=== PATIENT | male | born 1995 | race Caucasian/White ===

== ENCOUNTER 2019-10-28 15:34 | Emergency (ER) | payer BC ==
--- NOTE | 2019-10-28 16:14 | CR ---
EXAMINATION: Hand Comp Min 3V Rt SEX: Male AGE: 24 years CLINICAL HISTORY: 24-year-old male complaining of Right 5th MCP PAIN. No comparison films immediately available. History old trauma. INTERPRETATION: Abnormal. 1. Near 90 degree angulation deformity at the site of healed distal diametaphyseal "boxers" fracture (distal fifth metacarpal right hand). 2. Mild overlying soft tissue swelling. 3. No sign of foreign body or inflammatory periostitis. 4. No acute fracture or dislocation right hand or wrist.
[2019-10-28] MEDS ORDERED: Ibuprofen 600 MG Tab PO ONE (16:32)
--- NOTE | 2019-10-28 16:38 | EDM.PDOC ---
ED HPI GENERAL MEDICAL PROBLEM - General Chief Complaint: Upper Extremity Injury/Pain Stated Complaint: KNUCKLE OUT OF PLACE ON HAND Time Seen by Provider: 10/28/19 16:00 Source of Information: Reports: Patient History Limitations: Reports: No Limitations - History of Present Illness INITIAL COMMENTS - FREE TEXT/NARRATIVE: This 24 yo male patient reports to the ED with pain in his right hand. The patient reports he had a boxer's fracture in August. The patient had a splint placed initially, but he removed the splint himself in approximately 6 weeks. The patient reports he hit his hand on a grain dryer today with increased pain in his hand. Onset: Today Duration: Constant Location: Reports: Upper Extremity, Right Quality: Reports: Ache, Throbbing Severity: Moderate Improves with: Reports: None Worsens with: Reports: None Context: Reports: Other - Related Data Allergies Allergy/AdvReac Type Severity Reaction Status Date / Time cherries Allergy Hives Uncoded 10/28/19 15:45 seasonal allergies Allergy watery Uncoded 10/28/19 15:45 eyes, stuffed up Home Meds: Home Meds ARIPiprazole [Aripiprazole] 5 mg PO DAILY 10/28/19 [History] FLUoxetine HCl [Fluoxetine HCl] 20 mg PO DAILY 10/28/19 [History] busPIRone [Buspar] 10 mg PO TID 10/28/19 [History] traZODone HCl [Trazodone HCl] 100 mg PO BEDTIME 10/28/19 [History] Past Medical History HEENT History: Reports: None Cardiovascular History: Reports: None Respiratory History: Reports: None Gastrointestinal History: Reports: None Genitourinary History: Reports: None Musculoskeletal History: Reports: Fracture Other Musculoskeletal History: right hand, 5th finger/knuckle Neurological History: Reports: None Psychiatric History: Reports: Anxiety, Depression, PTSD, Other (See Below) Other Psychiatric History: Insomnia Endocrine/Metabolic History: Reports: None Hematologic History: Reports: None Immunologic History: Reports: None Oncologic (Cancer) History: Reports: None Dermatologic History: Reports: None Social & Family History - Tobacco Use Smoking Status *Q: Current Every Day Smoker Years of Tobacco use: 10 Packs/Tins Daily: 1 Review of Systems - Review of Systems Review Of Systems: Comprehensive ROS is negative, except as noted in HPI. ED EXAM, GENERAL - Physical Exam Exam: See Below Exam Limited By: No Limitations General Appearance: Alert, WD/WN, Moderate Distress Eye Exam: Bilateral Eye: EOMI, Normal Inspection, PERRL Ears: Normal External Exam, Normal Canal, Hearing Grossly Normal, Normal TMs Nose: Normal Inspection, Normal Mucosa, No Blood Throat/Mouth: Normal Inspection, Normal Lips, Normal Teeth, Normal Gums, Normal Oropharynx, Normal Voice, No Airway Compromise Head: Atraumatic, Normocephalic Neck: Normal Inspection, Supple, Non-Tender, Full Range of Motion Respiratory/Chest: No Respiratory Distress, Lungs Clear, Normal Breath Sounds, No Accessory Muscle Use, Chest Non-Tender Cardiovascular: Normal Peripheral Pulses, Regular Rate, Rhythm, No Edema, No Gallop, No JVD, No Murmur, No Rub GI/Abdominal: Normal Bowel Sounds, Soft, Non-Tender, No Organomegaly, No Distention, No Abnormal Bruit, No Mass (Male) Exam: Deferred Rectal (Males) Exam: Deferred Back Exam: Normal Inspection, Full Range of Motion, NT Extremities: Arm Pain (right hand pain) Neurological: Alert, Oriented, CN II-XII Intact, Normal Cognition, Normal Gait, Normal Reflexes, No Motor/Sensory Deficits Psychiatric: Normal Affect, Normal Mood Skin Exam: Warm, Dry, Intact, Normal Color, No Rash Lymphatic: No Adenopathy ED TRAUMA EXTREMITY PROCEDURES - Splinting Right Upper Extremity Pre-Procedure NV Status: Normal Post-Procedure NV Status: Normal Splint Material: Other (KELSEA wrap) Provider Post-Splint Application NV Check: NV Status Normal Course - Vital Signs Last Recorded V/S: Last Vital Signs Temp 37.2 C 10/28/19 15:40 Pulse 69 10/28/19 15:40 Resp 16 10/28/19 15:40 BP 116/64 10/28/19 15:40 Pulse Ox 100 10/28/19 15:40 - Orders/Labs/Meds Meds: Medications Discontinued Medications Generic Name Dose Route Start Last Admin Trade Name Freq PRN Reason Stop Dose Admin Ibuprofen 600 mg 10/28/19 16:32 10/28/19 16:36 Motrin PO 10/28/19 16:33 600 mg ONETIME ONE Administration Departure - Departure Time of Disposition: 16:33 Disposition: Home, Self-Care 01 Condition: Fair Clinical Impression: Right hand pain - Discharge Information *PRESCRIPTION DRUG MONITORING PROGRAM REVIEWED*: Not Applicable *COPY OF PRESCRIPTION DRUG MONITORING REPORT IN PATIENT RAJNI: Not Applicable Instructions: Cast or Splint Care, Adult, [id number] Forms: ED Department Discharge Care Plan Goals: The patient was advised of the examination and x-ray results during the visit. The patient's right hand was splinted in an KELSEA wrap while in the ED. The patient should rest, ice and elevate his arm over the next 24 hours. The patient was encouraged to follow-up with his primary care facility or orthopedic provider for continued evaluation and management. If the patient has any additional symptoms or concerns, the patient should either return to the emergency department or visit his primary care facility. Sepsis Event Note (ED) - Evaluation Sepsis Screening Result: No Definite Risk - Focused Exam Vital Signs: Vital Signs Temp Pulse Resp BP Pulse Ox 10/28/19 15:40 37.2 C 69 16 116/64 100
== END 2019-10-28 16:41 | disposition home or self-care (01) ==
LOC: DL.ED 15:34
DX: M79.641 Pain in right hand (principal); F17.210 Nicotine dependence, cigarettes, uncomplicated; F41.9 Anxiety disorder, unspecified; F32.9 Major depressive disorder, single episode, unspecified; Z91.018 Allergy to other foods; Z79.899 Other long term (current) drug therapy
CPT/HCPCS: 73130; 99283; A9270

== ENCOUNTER 2020-05-14 14:38 | Emergency (ER) | payer BC ==
--- NOTE | 2020-05-14 14:57 | EDM.PDOCBH ---
ED HPI GENERAL MEDICAL PROBLEM - General Chief Complaint: Drug or Alcohol Abuse Stated Complaint: AMBULANCE Time Seen by Provider: 05/14/20 14:57 Source of Information: Reports: Patient, RN, RN Notes Reviewed History Limitations: Reports: No Limitations - History of Present Illness INITIAL COMMENTS - FREE TEXT/NARRATIVE: 25 y/o m c/o HAJI, nausea and fatigue since this morning. Pt wants detox from alcohol addiction at [facility]. Hx of depression, drug and alcohol abuse. Last drink was before midnight last night. Last used meth in the summer. Uses marijuana recreationally. Denies fever, cough, chills, sob, cp, abd pn. Has not been taking his prescribed medications for several weeks. Duration: Hour(s): Location: Reports: Head, Generalized Quality: Reports: Dull Severity: Mild Improves with: Reports: None Worsens with: Reports: None Associated Symptoms: Reports: Nausea/Vomiting - Related Data Allergies Allergy/AdvReac Type Severity Reaction Status Date / Time cherries Allergy Hives Uncoded 05/14/20 14:50 seasonal allergies Allergy watery Uncoded 05/14/20 14:50 eyes, stuffed up Home Meds: Home Meds ARIPiprazole [Aripiprazole] 5 mg PO DAILY 10/28/19 [History] FLUoxetine HCl [Fluoxetine HCl] 20 mg PO DAILY 10/28/19 [History] busPIRone [Buspar] 10 mg PO TID 10/28/19 [History] traZODone HCl [Trazodone HCl] 100 mg PO BEDTIME 10/28/19 [History] Past Medical History HEENT History: Reports: None Cardiovascular History: Reports: None Respiratory History: Reports: None Gastrointestinal History: Reports: None Genitourinary History: Reports: None Musculoskeletal History: Reports: Fracture Other Musculoskeletal History: right hand, 5th finger/knuckle Neurological History: Reports: None Psychiatric History: Reports: Anxiety, Depression, PTSD, Other (See Below) Other Psychiatric History: Insomnia Endocrine/Metabolic History: Reports: None Hematologic History: Reports: None Immunologic History: Reports: None Oncologic (Cancer) History: Reports: None Dermatologic History: Reports: None Social & Family History - Family History Family Medical History: No Pertinent Family History - Alcohol Use Alcohol Use History: Yes Alcohol Use Frequency: Daily - Recreational Drug Use Recreational Drug Use: Yes Drug Use in Last 12 Months: Yes Recreational Drug Type: Reports: Marijuana/Hashish, Methamphetamine, Xanax ED ROS GENERAL - Review of Systems Review Of Systems: Comprehensive ROS is negative, except as noted in HPI. ED EXAM, BEHAVIORAL HEALTH - Physical Exam Exam: See Below Exam Limited By: No Limitations General Appearance: Alert, No Apparent Distress Ears: Normal External Exam Nose: Normal Inspection Throat/Mouth: Normal Inspection Head: Atraumatic, Normocephalic Neck: Normal Inspection, Supple, Non-Tender Respiratory/Chest: No Respiratory Distress, Lungs Clear, Normal Breath Sounds, No Accessory Muscle Use, Chest Non-Tender Cardiovascular: Normal Peripheral Pulses, Regular Rate, Rhythm, No Edema, No Murmur GI/Abdominal: Normal Bowel Sounds, Soft, Non-Tender Back Exam: Normal Inspection Extremities: Normal Inspection Neurological: Alert Psychiatric: Depressed Mood Skin Exam: Warm, Dry, Intact, Normal color COURSE, BEHAVIORAL HEALTH COMP - Course Vital Signs: Last Vital Signs Temp 98.6 F 05/14/20 14:38 Pulse 63 05/14/20 14:38 Resp 16 05/14/20 14:38 BP 115/67 05/14/20 14:38 Pulse Ox 99 05/14/20 14:38 Orders, Labs, Meds: Laboratory Tests 05/14/20 05/14/20 05/14/20 Range/Units 15:00 15:00 15:06 WBC 7.8 (5.0-10.0) 10^3/uL RBC 4.81 (4.6-6.2) 10^6/uL Hgb 16.1 (14.0-18.0) g/dL Hct 45.3 (40.0-54.0) % MCV 94.2 (80-100) fL MCH 33.5 (27.0-34.0) pg MCHC 35.5 H (33.0-35.0) g/dL Plt Count 286 (150-450) 10^3/uL Neut % (Auto) 65.3 (42.2-75.2) % Lymph % (Auto) 24.5 (20.5-50.1) % [place] % (Auto) 6.9 (2-8) % Eos % (Auto) 2.7 (1.0-3.0) % Baso % (Auto) 0.6 (0.0-1.0) % Sodium (136-145) mmol/L Potassium (3.5-5.1) mmol/L Chloride (98-107) mmol/L Carbon Dioxide (21-32) mmol/L Anion Gap (7-13) mEq/L BUN (7-18) mg/dL Creatinine (0.70-1.30) mg/dL Est Cr Clr Drug Dosing mL/min Estimated GFR (MDRD) BUN/Creatinine Ratio (No establ ref range) Glucose (74-99) mg/dL Calcium (8.5-10.1) mg/dL Magnesium (1.8-2.4) mg/dL Total Bilirubin (0.2-1.0) mg/dL AST (15-37) U/L ALT (16-63) U/L Alkaline Phosphatase (46-116) U/L Total Protein (6.4-8.2) g/dL Albumin (3.4-5.0) g/dL Globulin Albumin/Globulin Ratio Urine Color Yellow (YELLOW) Urine Appearance Clear (CLEAR) Urine pH 7.5 (5.0-9.0) Ur Specific [place] 1.020 (1.005-1.030) Urine Protein Negative (NEGATIVE) Urine Glucose (UA) Negative (NEGATIVE) Urine Ketones Negative (NEGATIVE) Urine Occult Blood Negative (NEGATIVE) Urine Nitrite Negative (NEGATIVE) Urine Bilirubin Negative (NEGATIVE) Urine Urobilinogen 0.2 (0.2-1.0) mg/dL Ur Leukocyte Esterase Negative (NEGATIVE) Salicylates (2.8-20(Therapeutic)) mg/dL Urine Opiates Screen Negative (NEGATIVE) Ur Oxycodone Screen Negative (NEGATIVE) Urine Methadone Screen Negative (NEGATIVE) Acetaminophen (10-30 (Therapeutic)) ug/mL Ur Barbiturates Screen Negative (NEGATIVE) U Tricyclic Antidepress Negative (NEGATIVE) Ur Phencyclidine Scrn Negative (NEGATIVE) Ur Amphetamine Screen Negative (NEGATIVE) U Methamphetamines Scrn Negative (NEGATIVE) Urine MDMA Screen Negative (NEGATIVE) U Benzodiazepines Scrn Negative (NEGATIVE) Urine Cocaine Screen Negative (NEGATIVE) U Marijuana (THC) Screen Positive H (NEGATIVE) Ethyl Alcohol (0) mg/dL 05/14/20 05/14/20 Range/Units 15:06 15:06 WBC (5.0-10.0) 10^3/uL RBC (4.6-6.2) 10^6/uL Hgb (14.0-18.0) g/dL Hct (40.0-54.0) % MCV (80-100) fL MCH (27.0-34.0) pg MCHC (33.0-35.0) g/dL Plt Count (150-450) 10^3/uL Neut % (Auto) (42.2-75.2) % Lymph % (Auto) (20.5-50.1) % [place] % (Auto) (2-8) % Eos % (Auto) (1.0-3.0) % Baso % (Auto) (0.0-1.0) % Sodium 143 (136-145) mmol/L Potassium 4.4 (3.5-5.1) mmol/L Chloride 103 (98-107) mmol/L Carbon Dioxide 29 (21-32) mmol/L Anion Gap 15.4 H (7-13) mEq/L BUN 7 (7-18) mg/dL Creatinine 0.76 (0.70-1.30) mg/dL Est Cr Clr Drug Dosing 149.04 mL/min Estimated GFR (MDRD) > 60 BUN/Creatinine Ratio 9.2 (No establ ref range) Glucose 81 (74-99) mg/dL Calcium 9.2 (8.5-10.1) mg/dL Magnesium 2.0 (1.8-2.4) mg/dL Total Bilirubin 1.1 H (0.2-1.0) mg/dL AST 11 L (15-37) U/L ALT 19 (16-63) U/L Alkaline Phosphatase 65 (46-116) U/L Total Protein 7.5 (6.4-8.2) g/dL Albumin 4.8 (3.4-5.0) g/dL Globulin 2.7 Albumin/Globulin Ratio 1.8 Urine Color (YELLOW) Urine Appearance (CLEAR) Urine pH (5.0-9.0) Ur Specific [place] (1.005-1.030) Urine Protein (NEGATIVE) Urine Glucose (UA) (NEGATIVE) Urine Ketones (NEGATIVE) Urine Occult Blood (NEGATIVE) Urine Nitrite (NEGATIVE) Urine Bilirubin (NEGATIVE) Urine Urobilinogen (0.2-1.0) mg/dL Ur Leukocyte Esterase (NEGATIVE) Salicylates < 2.8 L (2.8-20(Therapeutic)) mg/dL Urine Opiates Screen (NEGATIVE) Ur Oxycodone Screen (NEGATIVE) Urine Methadone Screen (NEGATIVE) Acetaminophen 0 L (10-30 (Therapeutic)) ug/mL Ur Barbiturates Screen (NEGATIVE) U Tricyclic Antidepress (NEGATIVE) Ur Phencyclidine Scrn (NEGATIVE) Ur Amphetamine Screen (NEGATIVE) U Methamphetamines Scrn (NEGATIVE) Urine MDMA Screen (NEGATIVE) U Benzodiazepines Scrn (NEGATIVE) Urine Cocaine Screen (NEGATIVE) U Marijuana (THC) Screen (NEGATIVE) Ethyl Alcohol 8 (0) mg/dL Medications Discontinued Medications Generic Name Dose Route Start Last Admin Trade Name Freq PRN Reason Stop Dose Admin Acetaminophen 650 mg 05/14/20 15:02 05/14/20 15:07 Tylenol PO 05/14/20 15:03 650 mg NOW ONE Administration Re-Assessment/Re-Exam: Pt declines medication for withdrawal. CIWA score is 0. Medical Clearance: 05/14/20 15:54 Pt is medically clear for [facility] placement. Departure - Departure Time of Disposition: 15:54 Disposition: Home, Self-Care 01 Condition: Good Clinical Impression: Alcohol abuse, Drug dependence, Nausea - Discharge Information *PRESCRIPTION DRUG MONITORING PROGRAM REVIEWED*: Not Applicable *COPY OF PRESCRIPTION DRUG MONITORING REPORT IN PATIENT RAJNI: Not Applicable Instructions: Alcohol Use Disorder, Chemical Dependency, Nausea, Adult Forms: ED Department Discharge Additional Instructions: Rx: Zofran 4mg: One tablet by mouth every 8 hours for 6 doses. Medically clear for [facility] entrance. Sepsis Event Note (ED) - Evaluation Sepsis Screening Result: No Definite Risk - Focused Exam Vital Signs: Vital Signs Temp Pulse Resp BP Pulse Ox 05/14/20 14:38 98.6 F 63 16 115/67 99
[2020-05-14] MEDS ORDERED: Acetaminophen 325 MG Tab PO ONE (15:02)
[2020-05-14 15:30] LABS: ACETAMINOPHEN 0 ug/mL (10-30 (Therapeutic)); ANION GAP 15.4 mEq/L (7-13); CHLORIDE,CL 103 mmol/L (98-107); SODIUM,NA 143 mmol/L (136-145)
== END 2020-05-14 16:08 | disposition home or self-care (01) ==
LOC: DL.ED 14:38
DX: F10.10 Alcohol abuse, uncomplicated (principal); F12.20 Cannabis dependence, uncomplicated; F41.9 Anxiety disorder, unspecified; F32.9 Major depressive disorder, single episode, unspecified; Y90.0 Blood alcohol level of less than 20 mg/100 ml; Z91.018 Allergy to other foods; Z91.048 Other nonmedicinal substance allergy status; Z79.899 Other long term (current) drug therapy
CPT/HCPCS: 36415; 80053; 80143; 80179; 80305; 80307; 81003; 83735; 85025; 99284; A9270; 99283

== ENCOUNTER 2021-01-19 12:04 | Emergency (ER) | payer BC ==
--- NOTE | 2021-01-19 12:48 | EDM.PDOCBH ---
ED HPI GENERAL MEDICAL PROBLEM - General Stated Complaint: METH YESTERDAY / SUICIDAL Time Seen by Provider: 01/19/21 12:43 Source of Information: Reports: Patient History Limitations: Reports: No Limitations - History of Present Illness INITIAL COMMENTS - FREE TEXT/NARRATIVE: 25 y/o M c/o suicidal ideations for 2 weeks. Pt was supposed to be taking Abilify, prozac and bupropion for his depression but quit taking them 2 weeks ago. He states he has been battling depression since a family member killed themselves ealier this year. Pt admits to meth alcohol and marijuana last night. Denies fever, cough, chills, cp, db, abd pn, pelvic pn, constipation, diff voiding. Duration: Week(s): Location: Reports: Generalized - Related Data Allergies Allergy/AdvReac Type Severity Reaction Status Date / Time cherries Allergy Hives Uncoded 01/19/21 12:38 seasonal allergies Allergy watery Uncoded 01/19/21 12:38 eyes, stuffed up Home Meds: Home Meds ARIPiprazole [Aripiprazole] 5 mg PO DAILY 10/28/19 [History] FLUoxetine HCl [Fluoxetine HCl] 20 mg PO DAILY 10/28/19 [History] busPIRone [Buspar] 10 mg PO TID 10/28/19 [History] Ibuprofen [Ibu] 600 mg PO Q6H PRN MDD pain 11/15/20 [History] Past Medical History HEENT History: Reports: None Cardiovascular History: Reports: None Respiratory History: Reports: None Gastrointestinal History: Reports: None Genitourinary History: Reports: None Musculoskeletal History: Reports: Fracture Other Musculoskeletal History: right hand, 5th finger/knuckle Neurological History: Reports: None Psychiatric History: Reports: Anxiety, Depression, PTSD, Other (See Below) Other Psychiatric History: Insomnia Endocrine/Metabolic History: Reports: None Hematologic History: Reports: None Immunologic History: Reports: None Oncologic (Cancer) History: Reports: None Dermatologic History: Reports: None Social & Family History - Family History Family Medical History: No Pertinent Family History - Caffeine Use Caffeine Use: Reports: Coffee ED ROS GENERAL - Review of Systems Review Of Systems: Comprehensive ROS is negative, except as noted in HPI. ED EXAM, BEHAVIORAL HEALTH - Physical Exam Exam: See Below General Appearance: Alert Eye Exam: Bilateral Eye: PERRL Throat/Mouth: Normal Inspection, Normal Lips, Normal Teeth, Normal Gums, Normal Oropharynx, Normal Voice, No Airway Compromise Head: Atraumatic, Normocephalic Neck: Normal Inspection, Supple, Non-Tender, Full Range of Motion Respiratory/Chest: No Respiratory Distress, Lungs Clear, Normal Breath Sounds, No Accessory Muscle Use, Chest Non-Tender Cardiovascular: Normal Peripheral Pulses, Regular Rate, Rhythm, No Edema, No Gallop, No JVD, No Murmur, No Rub GI/Abdominal: Soft, Non-Tender (Male) Exam: Deferred Rectal (Males) Exam: Deferred Back Exam: Normal Inspection, Full Range of Motion Extremities: Other (various diffuse lesions and abrasions from where pt has been sctraching himself on his arms and picking at his skin on his arms.) Neurological: Alert Psychiatric: Flat Affect, Poor Eye Contact Skin Exam: Warm, Dry, Intact, Other (except for previously mentioned skin findings) COURSE, BEHAVIORAL HEALTH COMP - Course Vital Signs: Last Vital Signs Temp 97.9 F 01/19/21 14:54 Pulse 55 L 01/19/21 14:54 Resp 20 01/19/21 14:54 BP 108/71 01/19/21 14:54 Pulse Ox 100 01/19/21 14:54 Orders, Labs, Meds: Active Orders 24 hr Category Date Time Status Consult to Behavioral Health [Behavioral Health Cons 01/19/21 12:17 Active Evaluation] [CONS] Routine DRUG SCREEN URINE BIORAD [URCHEM] Stat Lab 01/19/21 12:18 Ordered UA RFX YADIRA AND CULT IF INDIC [URIN] Stat Lab 01/19/21 12:18 Ordered Laboratory Tests 01/19/21 01/19/21 01/19/21 Range/Units 12:31 12:31 12:31 WBC 11.6 H (5.0-10.0) 10^3/uL RBC 4.57 L (4.6-6.2) 10^6/uL Hgb 15.3 D (14.0-18.0) g/dL Hct 43.1 (40.0-54.0) % MCV 94.3 (80-100) fL MCH 33.5 (27.0-34.0) pg MCHC 35.5 H (33.0-35.0) g/dL Plt Count 340 (150-450) 10^3/uL Neut % (Auto) 76.2 H (42.2-75.2) % Lymph % (Auto) 12.6 L (20.5-50.1) % [place] % (Auto) 7.9 (2-8) % Eos % (Auto) 3.0 (1.0-3.0) % Baso % (Auto) 0.3 (0.0-1.0) % Sodium 141 (136-145) mmol/L Potassium 3.7 (3.5-5.1) mmol/L Chloride 104 (98-107) mmol/L Carbon Dioxide 29 (21-32) mmol/L Anion Gap 11.7 (7-13) mEq/L BUN 11 (7-18) mg/dL Creatinine 0.88 (0.70-1.30) mg/dL Est Cr Clr Drug Dosing 108.37 mL/min Estimated GFR (MDRD) > 60 BUN/Creatinine Ratio 12.5 (No establ ref range) Glucose 95 (70-99) mg/dL Calcium 8.6 (8.5-10.1) mg/dL Magnesium 2.3 (1.8-2.4) mg/dL Total Bilirubin 1.3 H (0.2-1.0) mg/dL AST 15 (15-37) U/L ALT 21 (16-63) U/L Alkaline Phosphatase 72 (46-116) U/L Total Protein 6.8 (6.4-8.2) g/dL Albumin 3.9 (3.4-5.0) g/dL Globulin 2.9 Albumin/Globulin Ratio 1.3 TSH, Ultra Sensitive 0.45 (0.36-3.74) uIU/mL Salicylates < 2.8 L (2.8-20(Therapeutic)) mg/dL Acetaminophen 0 L (10-30 (Therapeutic)) ug/mL Ethyl Alcohol < 3 (0) mg/dL SARS-CoV-2 RNA (BOUBACAR) (NEGATIVE) 01/19/21 Range/Units 12:56 WBC (5.0-10.0) 10^3/uL RBC (4.6-6.2) 10^6/uL Hgb (14.0-18.0) g/dL Hct (40.0-54.0) % MCV (80-100) fL MCH (27.0-34.0) pg MCHC (33.0-35.0) g/dL Plt Count (150-450) 10^3/uL Neut % (Auto) (42.2-75.2) % Lymph % (Auto) (20.5-50.1) % [place] % (Auto) (2-8) % Eos % (Auto) (1.0-3.0) % Baso % (Auto) (0.0-1.0) % Sodium (136-145) mmol/L Potassium (3.5-5.1) mmol/L Chloride (98-107) mmol/L Carbon Dioxide (21-32) mmol/L Anion Gap (7-13) mEq/L BUN (7-18) mg/dL Creatinine (0.70-1.30) mg/dL Est Cr Clr Drug Dosing mL/min Estimated GFR (MDRD) BUN/Creatinine Ratio (No establ ref range) Glucose (70-99) mg/dL Calcium (8.5-10.1) mg/dL Magnesium (1.8-2.4) mg/dL Total Bilirubin (0.2-1.0) mg/dL AST (15-37) U/L ALT (16-63) U/L Alkaline Phosphatase (46-116) U/L Total Protein (6.4-8.2) g/dL Albumin (3.4-5.0) g/dL Globulin Albumin/Globulin Ratio TSH, Ultra Sensitive (0.36-3.74) uIU/mL Salicylates (2.8-20(Therapeutic)) mg/dL Acetaminophen (10-30 (Therapeutic)) ug/mL Ethyl Alcohol (0) mg/dL SARS-CoV-2 RNA (BOUBACAR) Negative (NEGATIVE) Re-Assessment/Re-Exam: Human services will transport the pt to the [facility] for further treatment. Medical Clearance: 01/19/21 15:37 [facility] will accept pt without urine. Urine sample results will be sent to [facility] once they are complete. Departure - Departure Time of Disposition: 15:03 (Voluntarily going to [facility]) Disposition: Home, Self-Care 01 Condition: Good Clinical Impression: Suicidal ideation, Encounter for medical screening examination, Methamphetamine abuse - Discharge Information *PRESCRIPTION DRUG MONITORING PROGRAM REVIEWED*: Not Applicable *COPY OF PRESCRIPTION DRUG MONITORING REPORT IN PATIENT RAJNI: Not Applicable Instructions: Suicidal Feelings: How to Help Yourself, Medical Screening Exam Additional Instructions: Go directly to [facility] Sepsis Event Note (ED) - Focused Exam Vital Signs: Vital Signs Temp Pulse Resp BP Pulse Ox 01/19/21 14:54 97.9 F 55 L 20 108/71 100 01/19/21 12:38 97.6 F 74 18 111/67 98
[2021-01-19 13:10] LABS: ANION GAP 11.7 mEq/L (7-13); CHLORIDE,CL 104 mmol/L (98-107); SODIUM,NA 141 mmol/L (136-145)
[2021-01-19 13:35] LABS: ACETAMINOPHEN 0 ug/mL (10-30 (Therapeutic))
[2021-01-19 16:04] LABS: AMPHETAMINES,URINE POSITIVE (NEGATIVE); BARBITURATES,URINE NEGATIVE (NEGATIVE); BENZODIAZEPINE,URINE NEGATIVE (NEGATIVE); MDMA (ECSTASY), URINE NEGATIVE (NEGATIVE); METHADONE,URINE NEGATIVE (NEGATIVE); METHAMPHETAMINES,URINE POSITIVE (NEGATIVE); OPIATES,URINE NEGATIVE (NEGATIVE); OXYCODONE,URINE NEGATIVE (NEGATIVE); PHENCYCLIDINE,URINE NEGATIVE (NEGATIVE); TCA,URINE NEGATIVE (NEGATIVE)
== END 2021-01-19 15:45 | disposition home or self-care (01) ==
LOC: DL.ED 12:04
DX: F32.9 Major depressive disorder, single episode, unspecified (principal); F15.10 Other stimulant abuse, uncomplicated; Z91.09 Other allergy status, other than to drugs and biological substances; Z20.822 Contact with and (suspected) exposure to COVID-19
CPT/HCPCS: 36415; 80053; 80143; 80179; 80305-QW; 80307; 81003; 83735; 84443; 85025; 99284; U0002

== ENCOUNTER 2021-02-12 14:06 | Emergency (ER) | payer BC ==
--- NOTE | 2021-02-12 14:26 | EDM.PDOCBH ---
<Ramesh Kennedy - Last Filed: 02/12/21 18:31> ED HPI GENERAL MEDICAL PROBLEM - General Chief Complaint: Drug or Alcohol Abuse Stated Complaint: [id number] [facility] [place] SAID TO COME Time Seen by Provider: 02/12/21 14:26 Source of Information: Reports: Patient, Old Records, RN, RN Notes Reviewed History Limitations: Reports: No Limitations - History of Present Illness INITIAL COMMENTS - FREE TEXT/NARRATIVE: Pt presents to ER by POV with request for help and possible transfer and admission to [facility] for suicidal thoughts and substance treatment. Pt reports Hx of chronic polysubstance abuse since age 15yr. He claims he has been to inpatient drug treatment twice. His longest period of sobriety has been 6 months. He admits using alcohol, marijuana, and methamphetamine. He has used opiates in the past, but has been on Naltrexone in the recent months. Pt states he has history of 2 previous suicide attempts, one by cutting his wrists, and once by hanging. He does not recall when the suicide attempts were, but thinks they were both within the past 2 to 3 years. Pt admits to recent suicidal thoughts, but has not made a concrete plan at this time. He does state that he will do something to himself if he has to wait until Thursday for a mental health/substance Zoom appointment with his [facility] counselor. He states, "I won't make it 'til Thursday". Duration: Chronic, Recurring Location: Reports: Generalized Severity: Severe Improves with: Reports: None Worsens with: Reports: None Associated Symptoms: Reports: No Other Symptoms - Related Data Allergies Allergy/AdvReac Type Severity Reaction Status Date / Time cherries Allergy Hives Uncoded 01/19/21 12:38 seasonal allergies Allergy watery Uncoded 01/19/21 12:38 eyes, stuffed up Home Meds: Home Meds ARIPiprazole [Aripiprazole] 5 mg PO DAILY 10/28/19 [History] FLUoxetine HCl [Fluoxetine HCl] 20 mg PO DAILY 10/28/19 [History] busPIRone [Buspar] 10 mg PO TID 10/28/19 [History] Ibuprofen [Ibu] 600 mg PO Q6H PRN MDD pain 11/15/20 [History] Naltrexone Microspheres [Vivitrol] 380 mg IM ASDIRECTED 10/05/21 [History] Past Medical History HEENT History: Reports: None Cardiovascular History: Reports: None Respiratory History: Reports: None Gastrointestinal History: Reports: None Genitourinary History: Reports: None Musculoskeletal History: Reports: Fracture Other Musculoskeletal History: right hand, 5th finger/knuckle Neurological History: Reports: None Psychiatric History: Reports: Anxiety, Depression, PTSD, Suicidal Ideation, Other (See Below) Other Psychiatric History: Insomnia Endocrine/Metabolic History: Reports: None Hematologic History: Reports: None Immunologic History: Reports: None Oncologic (Cancer) History: Reports: None Dermatologic History: Reports: None - Infectious Disease History Infectious Disease History: Reports: None - Past Surgical History Head Surgeries/Procedures: Reports: None GI Surgical History: Reports: Hernia, Inguinal Social & Family History - Family History Family Medical History: No Pertinent Family History - Tobacco Use Tobacco Use Status *Q: Current Every Day Tobacco User Tobacco Use Within Last Twelve Months: Cigarettes - Caffeine Use Caffeine Use: Reports: Coffee - Alcohol Use Alcohol Use History: Yes Alcohol Use Frequency: Binges, Weekly - Recreational Drug Use Recreational Drug Use: Yes Drug Use in Last 12 Months: Yes Recreational Drug Type: Reports: Fentanyl, Heroin, Marijuana/Hashish, Methamphetamine, Oxycodone Recreational Drug Use Frequency: Daily - Living Situation & Occupation Occupation: Unemployed ED ROS GENERAL - Review of Systems Review Of Systems: Comprehensive ROS is negative, except as noted in HPI. ED EXAM, BEHAVIORAL HEALTH - Physical Exam Exam: See Below Exam Limited By: No Limitations General Appearance: Alert, No Apparent Distress, Thin Eye Exam: Bilateral Eye: EOMI, Normal Inspection, PERRL Ears: Normal External Exam, Hearing Grossly Normal Nose: Normal Inspection, No Blood Throat/Mouth: Normal Inspection Head: Atraumatic, Normocephalic Neck: Normal Inspection, Non-Tender, Full Range of Motion Respiratory/Chest: No Respiratory Distress, Lungs Clear, Normal Breath Sounds, No Accessory Muscle Use, Chest Non-Tender Cardiovascular: Normal Peripheral Pulses, Regular Rate, Rhythm, No Edema, No Gallop, No JVD, No Murmur, No Rub GI/Abdominal: Normal Bowel Sounds, Soft, Non-Tender, No Distention Back Exam: Normal Inspection Extremities: Normal Inspection Neurological: Alert, CN II-XII Intact, Normal Cognition, Normal Gait, No Motor/Sensory Deficits, Oriented x 3 Psychiatric: Depressed Mood, Flat Affect, Poor Eye Contact, Withdrawn, Suicidal Thoughts. No: Phobic, Yazidi Delusions, Suicidal Plan, Auditory Hallucinations, Visual Hallucinations, Pressured Speech, Paranoid Thoughts, Threatening Behavior Skin Exam: Warm, Dry, Normal color COURSE, BEHAVIORAL HEALTH COMP - Course Medical Clearance: 02/12/[address] [facility] due to pt's suicidal ideation and uncontrolled polysubstance abuse. 02/12/21 17:[address] [facility] has no bed available for the pt. The RN has called the [facility] to come and evaluate the pt to determine an appropriate disposition or transfer for the pt. 02/12/21 Care of pt transferred to Janee wilner CHILD DEVELOPMENT INSTRUCTOR at 1900HR shift change. Departure - Departure Disposition: Home, Self-Care 01 Clinical Impression: Suicidal ideation, Methamphetamine abuse, Drug dependence, Encounter for medical screening examination, Alcohol abuse - Discharge Information *PRESCRIPTION DRUG MONITORING PROGRAM REVIEWED*: No *COPY OF PRESCRIPTION DRUG MONITORING REPORT IN PATIENT RAJNI: No Forms: ED Department Discharge Additional Instructions: 1.) Continue with safety plan established by [facility], including speaking with the addiction counselor tomorrow morning. 2.) Drink plenty of water to stay hydrated. 3.) Avoid alcohol and recreational drugs. 4.) Call the crisis line, as needed, or return to the emergency department. <Janee Long - Last Filed: 02/12/21 23:39> COURSE, BEHAVIORAL HEALTH COMP - Course Vital Signs: Last Vital Signs Temp 98.7 F 02/12/21 21:18 Pulse 90 02/12/21 21:18 Resp 16 02/12/21 21:18 BP 110/71 02/12/21 21:18 Pulse Ox 98 02/12/21 21:18 Orders, Labs, Meds: Laboratory Tests 02/12/21 02/12/21 02/12/21 Range/Units 14:23 14:27 14:27 WBC (5.0-10.0) 10^3/uL RBC (4.6-6.2) 10^6/uL Hgb (14.0-18.0) g/dL Hct (40.0-54.0) % MCV (80-100) fL MCH (27.0-34.0) pg MCHC (33.0-35.0) g/dL Plt Count (150-450) 10^3/uL Neut % (Auto) (42.2-75.2) % Lymph % (Auto) (20.5-50.1) % [place] % (Auto) (2-8) % Eos % (Auto) (1.0-3.0) % Baso % (Auto) (0.0-1.0) % Add Manual Diff Neutrophils % (Manual) (42-75) % Lymphocytes % (Manual) (20-50) % Atypical Lymphs % % Monocytes % (Manual) (2-8) % Eosinophils % (Manual) (1-3) % Basophils % (Manual) Sodium (136-145) mmol/L Potassium (3.5-5.1) mmol/L Chloride (98-107) mmol/L Carbon Dioxide (21-32) mmol/L Anion Gap (7-13) mEq/L BUN (7-18) mg/dL Creatinine (0.70-1.30) mg/dL Est Cr Clr Drug Dosing mL/min Estimated GFR (MDRD) BUN/Creatinine Ratio (No establ ref range) Glucose (70-99) mg/dL Calcium (8.5-10.1) mg/dL Magnesium (1.8-2.4) mg/dL Total Bilirubin (0.2-1.0) mg/dL AST (15-37) U/L ALT (16-63) U/L Alkaline Phosphatase (46-116) U/L Total Protein (6.4-8.2) g/dL Albumin (3.4-5.0) g/dL Globulin Albumin/Globulin Ratio TSH, Ultra Sensitive (0.36-3.74) uIU/mL Urine Color Yellow (YELLOW) Urine Appearance Clear (CLEAR) Urine pH 7.5 (5.0-9.0) Ur Specific [place] 1.020 (1.005-1.030) Urine Protein Negative (NEGATIVE) Urine Glucose (UA) Negative (NEGATIVE) Urine Ketones Negative (NEGATIVE) Urine Occult Blood Negative (NEGATIVE) Urine Nitrite Negative (NEGATIVE) Urine Bilirubin Negative (NEGATIVE) Urine Urobilinogen 0.2 (0.2-1.0) mg/dL Ur Leukocyte Esterase Negative (NEGATIVE) Salicylates (2.8-20(Therapeutic)) mg/dL Urine Opiates Screen Negative (NEGATIVE) Ur Oxycodone Screen Negative (NEGATIVE) Urine Methadone Screen Negative (NEGATIVE) Acetaminophen (10-30 (Therapeutic)) ug/mL Ur Barbiturates Screen Negative (NEGATIVE) U Tricyclic Antidepress Negative (NEGATIVE) Ur Phencyclidine Scrn Negative (NEGATIVE) Ur Amphetamine Screen Negative (NEGATIVE) U Methamphetamines Scrn Positive H (NEGATIVE) Urine MDMA Screen Negative (NEGATIVE) U Benzodiazepines Scrn Negative (NEGATIVE) Urine Cocaine Screen Negative (NEGATIVE) U Marijuana (THC) Screen Positive H (NEGATIVE) Ethyl Alcohol (0) mg/dL SARS-CoV-2 RNA (BOUBACAR) Negative (NEGATIVE) 02/12/21 02/12/21 02/12/21 Range/Units 14:35 14:35 14:35 WBC 5.0 (5.0-10.0) 10^3/uL RBC 4.61 (4.6-6.2) 10^6/uL Hgb 14.9 (14.0-18.0) g/dL Hct 43.7 (40.0-54.0) % MCV 94.8 (80-100) fL MCH 32.3 (27.0-34.0) pg MCHC 34.1 (33.0-35.0) g/dL Plt Count 197 D (150-450) 10^3/uL Neut % (Auto) 48.0 (42.2-75.2) % Lymph % (Auto) 31.3 (20.5-50.1) % [place] % (Auto) 18.7 H (2-8) % Eos % (Auto) 1.6 (1.0-3.0) % Baso % (Auto) 0.4 (0.0-1.0) % Add Manual Diff Yes Neutrophils % (Manual) 55 (42-75) % Lymphocytes % (Manual) 19 L (20-50) % Atypical Lymphs % 11 % Monocytes % (Manual) 12 H (2-8) % Eosinophils % (Manual) 1 (1-3) % Basophils % (Manual) 2 Sodium 142 (136-145) mmol/L Potassium 4.1 (3.5-5.1) mmol/L Chloride 105 (98-107) mmol/L Carbon Dioxide 31 (21-32) mmol/L Anion Gap 10.1 (7-13) mEq/L BUN 7 (7-18) mg/dL Creatinine 0.78 (0.70-1.30) mg/dL Est Cr Clr Drug Dosing 125.55 mL/min Estimated GFR (MDRD) > 60 BUN/Creatinine Ratio 9.0 (No establ ref range) Glucose 102 H (70-99) mg/dL Calcium 8.6 (8.5-10.1) mg/dL Magnesium 2.0 (1.8-2.4) mg/dL Total Bilirubin 0.5 (0.2-1.0) mg/dL AST 77 H (15-37) U/L ALT 95 H (16-63) U/L Alkaline Phosphatase 90 (46-116) U/L Total Protein 7.1 (6.4-8.2) g/dL Albumin 3.8 (3.4-5.0) g/dL Globulin 3.3 Albumin/Globulin Ratio 1.2 TSH, Ultra Sensitive 1.17 (0.36-3.74) uIU/mL Urine Color (YELLOW) Urine Appearance (CLEAR) Urine pH (5.0-9.0) Ur Specific [place] (1.005-1.030) Urine Protein (NEGATIVE) Urine Glucose (UA) (NEGATIVE) Urine Ketones (NEGATIVE) Urine Occult Blood (NEGATIVE) Urine Nitrite (NEGATIVE) Urine Bilirubin (NEGATIVE) Urine Urobilinogen (0.2-1.0) mg/dL Ur Leukocyte Esterase (NEGATIVE) Salicylates < 2.8 L (2.8-20(Therapeutic)) mg/dL Urine Opiates Screen (NEGATIVE) Ur Oxycodone Screen (NEGATIVE) Urine Methadone Screen (NEGATIVE) Acetaminophen 0 L (10-30 (Therapeutic)) ug/mL Ur Barbiturates Screen (NEGATIVE) U Tricyclic Antidepress (NEGATIVE) Ur Phencyclidine Scrn (NEGATIVE) Ur Amphetamine Screen (NEGATIVE) U Methamphetamines Scrn (NEGATIVE) Urine MDMA Screen (NEGATIVE) U Benzodiazepines Scrn (NEGATIVE) Urine Cocaine Screen (NEGATIVE) U Marijuana (THC) Screen (NEGATIVE) Ethyl Alcohol < 3 (0) mg/dL SARS-CoV-2 RNA (BOUBACAR) (NEGATIVE) Medications Discontinued Medications Generic Name Dose Route Start Last Admin Trade Name Freq PRN Reason Stop Dose Admin Lidocaine HCl 15 ml 02/12/21 14:52 02/12/21 15:08 Lidocaine 2% Viscous Solution 15 Ml Cup MUCMEM 02/12/21 14:53 15 ml ONETIME ONE Administration Medical Clearance: 02/12/21 Care of patient assumed by job specification writer from Dr. Kennedy at 1900. Per Kaitlynn from [facility], patient to discharge home with counselor from . Plan to follow up with addiction counselor in the morning at the [facility]. Departure - Departure Time of Disposition: 20:55 (Patient discharged into care of AA counselor) Condition: Good Sepsis Event Note (ED) - Focused Exam Vital Signs: Vital Signs Temp Pulse Resp BP Pulse Ox 02/12/21 21:18 98.7 F 90 16 110/71 98 02/12/21 14:40 84 15 124/72 98
[2021-02-12 14:52] LABS: AMPHETAMINES,URINE NEGATIVE (NEGATIVE); BARBITURATES,URINE NEGATIVE (NEGATIVE); BENZODIAZEPINE,URINE NEGATIVE (NEGATIVE); MDMA (ECSTASY), URINE NEGATIVE (NEGATIVE); METHADONE,URINE NEGATIVE (NEGATIVE); METHAMPHETAMINES,URINE POSITIVE (NEGATIVE); OPIATES,URINE NEGATIVE (NEGATIVE); OXYCODONE,URINE NEGATIVE (NEGATIVE); PHENCYCLIDINE,URINE NEGATIVE (NEGATIVE); TCA,URINE NEGATIVE (NEGATIVE)
[2021-02-12] MEDS ORDERED: Lidocaine 2% Viscous Solution 15 ML Cup MUCMEM ONE (14:52)
[2021-02-12 15:12] LABS: ACETAMINOPHEN 0 ug/mL (10-30 (Therapeutic)); ANION GAP 10.1 mEq/L (7-13); CHLORIDE,CL 105 mmol/L (98-107); SODIUM,NA 142 mmol/L (136-145)
== END 2021-02-12 21:12 | disposition home or self-care (01) ==
LOC: DL.ED 14:06
DX: F15.20 Other stimulant dependence, uncomplicated (principal); R45.851 Suicidal ideations; F10.10 Alcohol abuse, uncomplicated; F17.210 Nicotine dependence, cigarettes, uncomplicated; Z88.8 Allergy status to other drugs, medicaments and biological substances; Z79.899 Other long term (current) drug therapy; Z20.822 Contact with and (suspected) exposure to COVID-19
CPT/HCPCS: 36415; 80053; 80143; 80179; 80305-QW; 80307; 81003; 83735; 84443; 85025; 99285; A9270-GY; U0002

== ENCOUNTER 2021-08-24 16:11 | Emergency (ER) | payer BC ==
[2021-08-24 17:24] LABS: CORONAVIRUS COVID-19 NAA NEGATIVE (NEGATIVE)
== END 2021-08-24 17:29 ==
LOC: DL.ED 16:11
DX: Z20.822 Contact with and (suspected) exposure to COVID-19 (principal); Z53.21 Procedure and treatment not carried out due to patient leaving prior to being seen by health care provider
CPT/HCPCS: 0240U; 87430

== ENCOUNTER 2021-08-25 11:09 | Emergency (ER) | payer BC ==
[2021-08-25] MEDS ORDERED: Penicillin G Benzathine/Procaine 600-600 1.2 Millunits/2 ML Syringe IM ONE (13:19)
== END 2021-08-25 13:55 | disposition home or self-care (01) ==
LOC: DL.ED 11:09
DX: J02.0 Streptococcal pharyngitis (principal); Z91.09 Other allergy status, other than to drugs and biological substances; Z91.018 Allergy to other foods; Z72.0 Tobacco use
CPT/HCPCS: 96372; 99282; 99283; J0558

== ENCOUNTER 2021-11-01 03:05 | Emergency (ER) | payer BC ==
[2021-11-01] MEDS ORDERED: Sodium Chloride 0.9% 10 ML Syringe FLUSH PRN (03:26)
[2021-11-01] MEDS ORDERED: diphenhydrAMINE 50 MG/ML SDV IVPUSH ONE (03:26)
[2021-11-01 04:06] LABS: ANION GAP 10.3 mEq/L (7-13)
== END 2021-11-01 04:45 | disposition home or self-care (01) ==
LOC: DL.ED 03:05
DX: S60.569A Insect bite (nonvenomous) of unspecified hand, initial encounter (principal); L30.8 Other specified dermatitis; Z91.09 Other allergy status, other than to drugs and biological substances; W57.XXXA Bitten or stung by nonvenomous insect and other nonvenomous arthropods, initial encounter
CPT/HCPCS: 36415; 80053; 83735; 85025; 96374; 99282; 99283; J1200; J3490

== ENCOUNTER 2021-11-01 08:13 | Emergency (ER) | payer BC ==
[2021-11-01] MEDS ORDERED: Lidocaine 1% 30 ML SDV INJECT ONE (08:35)
[2021-11-01] MEDS ORDERED: Diphtheria,Pertussis(Acell),Tetanus Vaccine 0.5 ML Syringe IM ONE (09:01)
== END 2021-11-01 09:21 | disposition home or self-care (01) ==
LOC: DL.ED 08:13
DX: S01.511A Laceration without foreign body of lip, initial encounter (principal); Z88.8 Allergy status to other drugs, medicaments and biological substances; Z23 Encounter for immunization; Y04.2XXA Assault by strike against or bumped into by another person, initial encounter
CPT/HCPCS: 12011; 90471; 90715; 99283; 99284-25